=== PATIENT | female | born 1965 | race Caucasian/White ===

== ENCOUNTER 2020-04-24 00:45 | Emergency (ER) | payer SELFPAY ==
[~2020-04-24] VITALS: Ht 172.7 cm; Wt 81.8 kg
[2020-04-24 01:46] LABS: CREATININE 1.7 mg/dL (0.5-1.0); POTASSIUM 4.3 mmol/l (3.5-5.1)
[2020-04-24] MEDS ORDERED: SYNTHROID125 MCG PO (02:17)
[2020-04-24] MEDS ORDERED: PRAVASTATIN40 MG PO (02:19)
[2020-04-24] MEDS ORDERED: GABAPENTIN100 MG PO (02:19)
[2020-04-24] MEDS ORDERED: HUMALOG100 UNIT/M SC (02:20)
[2020-04-24 02:30] VITALS: BP 154/68
== END 2020-04-24 02:30 | disposition home or self-care (01) | DRG 639 ==
LOC: ED 00:45
PROVIDERS: Family Medicine
DX: E11.649 Type 2 diabetes mellitus with hypoglycemia without coma (principal); I10 Essential (primary) hypertension; F17.200 Nicotine dependence, unspecified, uncomplicated; Z79.4 Long term (current) use of insulin; Z96.41 Presence of insulin pump (external) (internal); Z95.1 Presence of aortocoronary bypass graft